=== PATIENT | female | born 1950 | race African-American/Black ===

== ENCOUNTER 2018-07-01 16:07 | Emergency (ER) | payer OTHER ==
[~2018-07-01] VITALS: Ht 180.3 cm; Wt 138.3 kg
[2018-07-01 18:11] LABS: URINE CLARITY CLEAR; URINE COLOR YELLOW
[2018-07-01 18:12] LABS: URINE BILIRUBIN NEGATIVE (Negative); URINE BLOOD 3+ (Negative); URINE GLUCOSE-RANDOM* NEGATIVE (Negative); URINE KETONES NEGATIVE (Negative); URINE NITRITE-REFLEX NEGATIVE (Negative); URINE PROTEIN (DIPSTICK) NEGATIVE (Negative); URINE UROBILINOGEN 0.2 E.U./dl (0.2-1.0)
[2018-07-01 18:13] LABS: URINE LEUKOCYTES-REFLEX NEGATIVE (Negative)
[2018-07-01 18:18] LABS: BACTERIA-REFLEX 1-9 Few /HPF (None Seen); CASTS None Seen /LPF (None Seen); CRYSTALS None Seen /LPF (None Seen); SQUAMOUS 0-3 Few /LPF (0-3); URINE WBC-REFLEX None Seen /HPF (0-5)
[2018-07-01] MEDS ORDERED: AMLODIPINE BESY10 MG PO (18:19)
[2018-07-01] MEDS ORDERED: HYDROCHLOROTHIA25 M2 PO (18:19)
[2018-07-01 20:25] LABS: HEMATOCRIT 46.1 % (37.0-47.0); HEMOGLOBIN 14.9 gm/dL (12.0-15.0); MCH 25.8 pg (26.0-34.0); MCHC 32.4 g/dL (28.0-37.0); MCV 79.8 fL (80.0-100.0); RBC 5.78 mil/uL (4.20-5.00); RDW 15.1 % (10.5-14.5); WBC 14.5 thou/uL (4.0-11.0)
[2018-07-01 20:33] LABS: CALCIUM 9.5 mg/dL (8.5-10.1); CREATININE 0.8 mg/dL (0.6-1.0); POTASSIUM 3.2 mmol/L (3.5-5.1)
[2018-07-01 20:42] LABS: APTT 30.3 Seconds (24.5-32.8); PROTIME 10.4 Seconds (9.3-11.4)
[2018-07-01 21:08] VITALS: BP 156/85
== END 2018-07-01 21:21 | disposition home or self-care (01) ==
LOC: ER 16:07
PROVIDERS: Emergency Medicine; Physician Assistant
DX: N93.9 Abnormal uterine and vaginal bleeding, unspecified (principal); I10 Essential (primary) hypertension; Z88.0 Allergy status to penicillin